=== PATIENT | male | born 1960 | race Caucasian/White ===

== ENCOUNTER 2016-11-12 16:36 | Emergency (ER) | payer SELFPAY ==
[2016-11-12 16:42] VITALS: BP 118/80; PULSE 85; TEMP 98; BMI 25.8
[2016-11-12] MEDS ORDERED: IBUPROFEN 600 MG TABLET (FP) PO ONE ×2 (17:09→17:15)
[2016-11-12] MEDS ORDERED: SULFAMETHOXAZOLE/TRIMETHOPRIM 800MG/160MG D.S. TABLET PO ONE (17:09)
--- NOTE | 2016-11-12 17:09 | PDOC ---
History of Present Illness - General Chief Complaint: Wound Infection Stated Complaint: FOOT PAIN Time Seen by Provider: 11/12/16 16:54 History Source: Patient Exam Limitations: No Limitations - History of Present Illness Initial Comments: 11/12/16 17:09 CHIEF COMPLAINT: Toe pain HISTORY OF PRESENT ILLNESS: This is an otherwise healthy 56 year old male who presents for evaluation of three days of right great toe pain and swelling. He denies fevers/chills or any other symptoms. V/s on arrival are unremarkable. REVIEW OF SYSTEMS: GENERAL/CONSTITUTIONAL: No fever or chills. No weakness. No weight change. MUSCULOSKELETAL: No joint or muscle swelling or pain. No neck or back pain. SKIN: See HPI. NEUROLOGIC: No headache, vertigo, loss of consciousness, or loss of sensation. HEMATOLOGIC/LYMPHATIC: No anemia, easy bleeding, or history of blood clots. ALLERGIC/IMMUNOLOGIC: No hives or skin allergy. No latex allergy. PHYSICAL EXAM: GENERAL: The patient is awake, alert, and fully oriented, in no acute distress. EXTREMITIES: Right great toe erythema, swelling, and fluctuance around nail bed. NEUROLOGICAL: Normal speech, normal gait. CN II-XII grossly intact. PSYCH: Normal mood, normal affect. SKIN: Warm, dry, normal turgor, no rashes or lesions noted. Past History - Past Medical History Allergies/Adverse Reactions: Allergies Allergy/AdvReac Type Severity Reaction Status Date / Time No Known Allergies Allergy Verified 11/12/16 16:38 Home Medications: Ambulatory Orders Ibuprofen 600 mg PO Q6H PRN #20 tablet 11/12/16 Sulfamethoxazole/Trimethoprim [Bactrim Ds -] 1 tab PO BID #14 tablet 11/12/16 - Immunization History Immunization Up to Date: Yes - Psycho/Social/Smoking Cessation Hx Suicidal Ideation: No Smoking History: Never smoked Information on smoking cessation initiated: No Hx Alcohol Use: No Drug/Substance Use Hx: No *Physical Exam - Vital Signs Last Vital Signs Temp Pulse Resp BP Pulse Ox 98.0 F 85 18 118/80 100 11/12/16 16:38 11/12/16 16:38 11/12/16 16:38 11/12/16 16:38 11/12/16 16:38 Procedures - Incision and Drainage I&D Site: Right: Paronychia (hallux) Anesthesia: 1% Lidocaine Volume(ml): 2 (digital block) Blade Size: 15 Dressing: Yes Medical Decision Making - Medical Decision Making 11/12/16 17:51 A/P: 56 year old male with paronychia. *DC/Admit/Observation/Transfer Diagnosis at time of Disposition: Paronychia - Discharge Dispostion Disposition: HOME Condition at time of disposition: Stable Admit: No - Prescriptions Prescriptions: Sulfamethoxazole/Trimethoprim [Bactrim Ds -] 1 tab PO BID #14 tablet Ibuprofen 600 mg PO Q6H PRN #20 tablet PRN Reason: Pain - Referrals Referrals: Mahesh Lester MD [Staff Physician] - (Primary care if you do not have one) - Patient Instructions Printed Discharge Instructions: DI for Paronychia Additional Instructions: -Take Bactrim (antibiotic) as prescribed -Change the dressing and soak the foot in warm water several times daily -Seeing drainage (blood and pus) on the dressing for several days is normal -Return here for fever, worsening redness/pain, or any other concerning symptoms -Otherwise, follow up with your primary care doctor - Post Discharge Activity Work/School Note: Back to Work
[2016-11-12] MEDS ORDERED: SULFAMETHOXAZOLE/TRIMETHOPRIM 800MG/160MG D.S. TABLET ONE (17:15)
== END 2016-11-12 17:38 | disposition home or self-care (01) ==
LOC: JERFT 16:36
PROC: 0H9MXZZ Drainage of Right Foot Skin, External Approach (ICD-10-PCS; principal; 2016-11-12)
DX: L03.031 Cellulitis of right toe (principal)
CPT/HCPCS: 87070; 87186; 87205; 99281-25

== ENCOUNTER 2017-08-20 11:39 | Emergency (ER) | payer SELFPAY ==
[2017-08-20 11:45] VITALS: BP 111/77; PULSE 80; TEMP 98.8; BMI 22.2
--- NOTE | 2017-08-20 12:32 | PDOC ---
History of Present Illness - General Chief Complaint: Rash Stated Complaint: rash /shingles Time Seen by Provider: 08/20/17 12:08 - History of Present Illness Initial Comments: 56-year-old male without any significant comorbidities presents for evaluation of rash 3 days without any other associated symptoms. He describes his rash is very painful. His rashes on his lower back. 08/20/17 12:27 Past History - Past Medical History Allergies/Adverse Reactions: Allergies Allergy/AdvReac Type Severity Reaction Status Date / Time No Known Allergies Allergy Verified 08/20/17 11:40 Home Medications: Ambulatory Orders Ibuprofen 600 mg PO Q6H PRN #20 tablet 11/12/16 Sulfamethoxazole/Trimethoprim [Bactrim Ds -] 1 tab PO BID #14 tablet 11/12/16 Acyclovir [Zovirax -] 800 mg PO 5XD #35 tablet 08/20/17 Oxycodone HCl/Acetaminophen [Percocet 5-325 mg Tablet] 1 - 2 tab PO Q6H #20 tab MDD 8 08/20/17 COPD: No - Immunization History Immunization Up to Date: Yes - Suicide/Smoking/Psychosocial Hx Smoking History: Never smoked Information on smoking cessation initiated: No Hx Alcohol Use: No Drug/Substance Use Hx: No Substance Use Type: None Review of Systems - Review of Systems Integumentary: Yes: See HPI, Rash All Other Systems: Reviewed and Negative *Physical Exam - Vital Signs Last Vital Signs Temp Pulse Resp BP Pulse Ox 98.8 F 80 18 111/77 100 08/20/17 11:42 08/20/17 11:42 08/20/17 11:42 08/20/17 11:42 08/20/17 11:42 - Physical Exam Comments: There is a large vesicular rash originating from the midline of the back wrapping around to the right hip and ending at the [employer]. Vesicles are closed the rash is associated with mild erythema there is no surrounding erythema induration or warmth. The rash is tender. 08/20/17 12:28 Medical Decision Making - Medical Decision Making I will treat him for shingles with acyclovir and Percocet and recommend primary care follow-up. 08/20/17 12:28 *DC/Admit/Observation/Transfer Diagnosis at time of Disposition: Shingles - Discharge Dispostion Disposition: HOME Condition at time of disposition: Stable Decision to Admit order: No - Prescriptions Prescriptions: Acyclovir [Zovirax -] 800 mg PO 5XD #35 tablet Oxycodone HCl/Acetaminophen [Percocet 5-325 mg Tablet] 1 - 2 tab PO Q6H #20 tab MDD 8 - Referrals Referrals: Krishan Scott MD [Staff Physician] - - Patient Instructions Printed Discharge Instructions: DI for Shingles, Shingles Additional Instructions: Esta es aj erupcin viral. He pedido aj medicacin antiviral que ayudar a la erupcin, usted musy finsih todos los medicamentos. Tambin he pedido medicamentos para el dolor que deberan aliviarlo. Regrese a la radha de emergencias si pham sarpullido no se resuelve antes del seguimiento con pham mdico de atencin primaria en los prximos 2 o 3 scott. He recomendado a un mdico de atencin primaria en el cathie para usted. Es muy importante que sigas. - Post Discharge Activity
== END 2017-08-20 12:39 | disposition home or self-care (01) ==
LOC: JERFT 11:39
DX: B02.9 Zoster without complications (principal)
CPT/HCPCS: 99281-25